=== PATIENT | female | born 1985 | race Caucasian/White ===

== ENCOUNTER 2016-09-13 10:31 | Emergency (ER) | payer BC ==
[~2016-09-13] VITALS: Ht 167.6 cm; Wt 86.2 kg
[2016-09-13 11:23] VITALS: BP 110/62
== END 2016-09-13 12:08 | disposition home or self-care (01) ==
LOC: ER 10:41
DX: J20.9 Acute bronchitis, unspecified (principal); J02.9 Acute pharyngitis, unspecified

== ENCOUNTER → 2017-06-08 | Outpatient (CLI) | payer BC | END | disposition home or self-care (01) | LOC: LAB 07:40 | DX: E03.9 Hypothyroidism, unspecified (principal) | CPT/HCPCS: 36415; 84443 ==